=== PATIENT | female | born 1970 | race African-American/Black ===

== ENCOUNTER 2023-08-21 14:02 | Emergency (ER) | payer OTHER ==
[~2023-08-21] VITALS: Ht 165.1 cm; Wt 76.0 kg
[2023-08-21 14:11] VITALS: BP 172/93; TEMP 99.8; O2SAT 99
[2023-08-21 14:22] VITALS: PULSE 100
[2023-08-21] MEDS ORDERED: ALBU6.7H15 INH (15:49)
== END 2023-08-21 16:45 | disposition left against medical advice (07) ==
LOC: ER 14:02
DX: R05.9 Cough, unspecified (principal); I10 Essential (primary) hypertension; Z88.8 Allergy status to other drugs, medicaments and biological substances; Z53.21 Procedure and treatment not carried out due to patient leaving prior to being seen by health care provider; Z98.890 Other specified postprocedural states
CPT/HCPCS: 71045; 93005; 99283